=== PATIENT | male | born 1990 | race Caucasian/White ===

== ENCOUNTER 2016-12-21 07:57 | Emergency (ER) | payer OTHER, MEDICAID ==
[~2016-12-21] VITALS: Ht 177.8 cm; Wt 120.0 kg
[~2016-12-21 07:57] MED LIST: BACT800T5 PO; CEPH500C3 PO
[2016-12-21 07:59] VITALS: BP 136/99; PULSE 76; RESP 20; TEMP 97.5; O2SAT 98
[2016-12-21] MEDS ORDERED: PRED50 PO (08:44)
[2016-12-21] MEDS ORDERED: CYCL1TAB29 PO (08:44)
[2016-12-21] MEDS ORDERED: IBUP800T23 PO (08:44)
[2016-12-21] MEDS ORDERED: KETOROLAC TROMETHAMINE 60 MG/2 ML (IM) VIAL IM ONE (08:45)
[2016-12-21] MEDS ORDERED: ORPHENADRINE INJ 60 MG/2 ML AMP IM ONE (08:45)
[2016-12-21] MEDS ORDERED: DEXAMETHASONE SOD PHOS 20 MG/5 ML VIAL IM ONE (08:45)
--- NOTE | 2016-12-21 08:45 | PD ---
HPI Chief Complaint: Back/ Neck Pain or Injury Time Seen by Provider: 08:40 Travel History International Travel<30 days: No Contact w/Intl Traveler<30days: No Traveled to known affect area: No History of Present Illness HPI Patient is a 26-year-old male presenting to the emergency department for evaluation of left lower back pain. Patient states the pain started yesterday when he lifted his 34 pound child onto the bed to change his diaper. Patient states at that time he bent over and his back tightened up. He states that when that occurred his legs felt weak and he has pain radiating down the back of his leg. Patient is ambulatory in the emergency department. He reports his pain is a 10 out of 10 and describes it as shooting and tight. He denies any bladder or bowel incontinence, no saddle paresthesia, no weakness in his extremities. He has no other complaints at this time. He denies any significant past medical history other than to herniated disks in his back. PFSH Past Medical History Diminished Hearing: No Musculoskeletal: Yes (chronic back pain) Immunizations Current: Yes Social History Alcohol Use: Yes (SOCIALLY) Tobacco Use: Yes (1 PPD) Substance Use: No Allergies-Medications (Allergen,Severity, Reaction): Coded Allergies: No Known Allergies (Verified , 01/27/16) Reported Meds & Prescriptions Reported Meds & Active Scripts Active Keflex (Cephalexin Monohydrate) 500 Mg Cap 500 Mg PO BID Bactrim DS (Sulfamethoxazole-Trimethoprim DS) 1 Tab Tab 1 Tab PO BID 10 Days Review of Systems Except as stated in HPI: all other systems reviewed are Neg Musculoskeletal: Positive: Myalgias, Cramping, Pain Physical Exam Narrative GENERAL: Obese, Well-nourished, well-developed patient. Appears uncomfortable. SKIN: Focused skin assessment warm/dry. HEAD: Normocephalic. EYES: No scleral icterus. No injection or drainage. NECK: Supple, trachea midline. No JVD or lymphadenopathy. CARDIOVASCULAR: Regular rate and rhythm without murmurs, gallops, or rubs. RESPIRATORY: Breath sounds equal bilaterally. No accessory muscle use. GASTROINTESTINAL: Abdomen soft, non-tender, nondistended. MUSCULOSKELETAL: No cyanosis, or edema. Tender to palpation left paraspinal musculature in the lumbar region. No spinal tenderness noted. No weakness in extremities. 5/5 muscle strength in bilateral lower extremities. BACK: Nontender without obvious deformity. No CVA tenderness. Data Data Last Documented VS Vital Signs Date Time Temp Pulse Resp B/P Pulse Ox O2 Delivery O2 Flow Rate FiO2 12/21/16 07:59 97.5 76 20 136/99 98 Room Air Orders Dexamethasone Inj (Decadron Inj) (12/21/16 08:45) Ketorolac Inj (Toradol Inj) (12/21/16 08:45) Orphenadrine Inj (Norflex Inj) (12/21/16 08:45) [facility] Medical Decision Making Medical Screen Exam Complete: Yes Emergency Medical Condition: Yes Interpretation(s) Vital Signs Date Time Temp Pulse Resp B/P Pulse Ox O2 Delivery O2 Flow Rate FiO2 12/21/16 07:59 97.5 76 20 136/99 98 Room Air Differential Diagnosis Sciatica versus sprain versus strain versus spasm versus discogenic pain versus other Narrative Course Patient is a 26-year-old male presenting to emergency for evaluation of lower back pain that started yesterday when he lifted his 34 pound child onto the bed. Patient is a history of back pain, he has been taking acetaminophen with no relief of symptoms. Patient is neurologically and neurovascularly intact. He will be given Toradol, Norflex, dexamethasone the emergency department. Patient will be given prescriptions for anti-inflammatory medication and a muscle relaxer. He is encouraged to apply warm moist heat to the affected area , continue range of motion exercises, avoid exacerbating activities and avoiding bed rest. He was encouraged follow-up with a primary doctor return to emergency department for any new or worsening symptoms. Patient verbalized understanding of these instructions. Patient stable for discharge. Diagnosis Primary Impression: Strain of lumbar paraspinal muscle Qualified Code: S39.012A - Strain of lumbar paraspinal muscle, initial encounter Additional Impression: Spasm of lumbar paraspinous muscle Referrals: Primary Care Physician Patient Instructions: General Instructions, Muscle Spasm (ED), Muscle Strain ( ED) Additional Instructions: Follow-up with your primary doctor Take medications as directed Apply warm heat to the affected area, continue range of motion exercises, avoid bed rest, avoid exacerbating activities Return to emergency department for any new or worsening symptoms Med/Other Pt SpecificInfo: Prescription(s) given Scripts Ibuprofen 800 Mg Nsg070 Mg PO Q8H PRN (PAIN SCALE 1 TO 10) 10 Days Ref 0 Prov:Elba Kulkarni 12/21/16 Prednisone 50 Mg Tab50 Mg PO DAILY 5 Days Ref 0 Prov:Elba Kulkarni 12/21/16 Cyclobenzaprine (Flexeril)10 Mg Tab10 Mg PO TID PRN (MUSCLE SPASM) 10 Days Ref 0 Prov:Elba Kulkarni 12/21/16 Disposition: 01 DISCHARGE HOME Condition: Stable Elba Kulkarni Dec 21, 2016 08:44
== END 2016-12-21 09:54 | disposition home or self-care (01) ==
LOC: NEPK 07:57
DX: S39.012A Strain of muscle, fascia and tendon of lower back, initial encounter (principal); X50.0XXA Overexertion from strenuous movement or load, initial encounter; Y93.F2 Activity, caregiving, lifting
CPT/HCPCS: 96372; 99283; J1100; J1885; J2360

== ENCOUNTER 2017-08-06 18:00 | Emergency (ER) | payer MEDICAID ==
[~2017-08-06] VITALS: Ht 177.8 cm; Wt 131.0 kg
[~2017-08-06 18:00] MED LIST changes: +CYCL10TA PO; +IBUP1TAB7 PO; +PRED50 PO
[2017-08-06 18:07] VITALS: BP 166/77; PULSE 93; RESP 18; TEMP 98.9; O2SAT 98
[2017-08-06] MEDS ORDERED: MEDR4PAK PO (19:51)
[2017-08-06] MEDS ORDERED: VENTAER INH (19:51)
[2017-08-06] MEDS ORDERED: OSEL75 PO (19:53)
[2017-08-06] MEDS ORDERED: ZOFR4TAB3 SL (19:53)
--- NOTE | 2017-08-06 19:54 | PD ---
HPI Chief Complaint: Cold / Flu Symptoms Time Seen by Provider: 19:42 Travel History International Travel<30 days: No Contact w/Intl Traveler<30days: No Traveled to known affect area: No History of Present Illness HPI ONSET OF COUGH, RUNNY NOSE ABOUT 2 DAYS AGO, NOW STARTED TO HAVE N/V/D WELL STARTING TODAY..... NO ALLEVIATING/AGGRAVATING FACTORS. DENIES FEVER/CP/MICHELE/ ABDPAIN/ AT THIS TIME ALL:NKDA PMHX: DENIES PSHX: DENIES PFSH Past Medical History Diminished Hearing: No Musculoskeletal: Yes (chronic back pain herniated disc) Immunizations Current: Yes Tetanus Vaccination: < 5 Years Influenza Vaccination: No Social History Alcohol Use: Yes (SOCIALLY) Tobacco Use: Yes (1 PPD) Substance Use: No Allergies-Medications (Allergen,Severity, Reaction): Coded Allergies: No Known Allergies (Verified Adverse Reaction, Unknown, 08/06/17) Reported Meds & Prescriptions Reported Meds & Active Scripts Active No Active Prescriptions or Reported Medications Review of Systems Except as stated in HPI: all other systems reviewed are Neg General / Constitutional: No: Fever Eyes: No: Visual changes HENT: No: Headaches Cardiovascular: No: Chest Pain or Discomfort Respiratory: Positive: Cough Gastrointestinal: Positive: Nausea, Vomiting, Diarrhea Genitourinary: No: Dysuria Musculoskeletal: No: Pain Skin: No Rash Neurologic: No: Weakness Psychiatric: No: Depression Endocrine: No: Polydipsia Hematologic/Lymphatic: No: Easy Bruising Physical Exam Narrative GENERAL: SKIN: Warm and dry. HEAD: Atraumatic. Normocephalic. EYES: Pupils equal and round. No scleral icterus. No injection or drainage. ENT: No nasal bleeding or discharge. Mucous membranes pink and moist. NECK: Trachea midline. No JVD. CARDIOVASCULAR: Regular rate and rhythm. RESPIRATORY: No accessory muscle use. Clear to auscultation. Breath sounds equal bilaterally. MILD SCATTERED WHEEZING WITH NL TIDAL VOLUME GASTROINTESTINAL: Abdomen soft, non-tender, nondistended. MUSCULOSKELETAL: Extremities without clubbing, cyanosis, or edema. No obvious deformities. NEUROLOGICAL: Awake and alert. No obvious cranial nerve deficits. Motor grossly within normal limits. Five out of 5 muscle strength in the arms and legs. Normal speech. PSYCHIATRIC: Appropriate mood and affect; insight and judgment normal. Data Data Last Documented VS Vital Signs Date Time Temp Pulse Resp B/P (MAP) Pulse Ox O2 Delivery O2 Flow Rate FiO2 08/06/17 19:10 20 98 Room Air 08/06/17 18:07 98.9 93 166/77 (106) Orders Orders Ondansetron Odt (Zofran Odt) (08/06/17 20:00) Hydrocodone-Homatropine Liq (Hycodan Liq (08/06/17 20:00) Chest, Pa & Lat (08/06/17 19:46) MDM Medical Decision Making Medical Screen Exam Complete: Yes Emergency Medical Condition: Yes Medical Record Reviewed: Yes Differential Diagnosis FLU V PNA V PTX V VIRAL SYNDROME V VIRAL GASTROENTERITIS Diagnosis Primary Impression: FLU Patient Instructions: General Instructions, Influenza (DC) Scripts Oseltamivir (Tamiflu) 75 Mg Cap 75 MG PO BID for Mgmt Viral Infection for 5 Days, #10 CAP 0 Refills Prov: Satish Marroquin MD 08/06/17 Ondansetron Odt (Zofran Odt) 4 Mg Tab 4 MG SL Q6HR Y for Nausea/Vomiting, #20 TAB 0 Refills Prov: Satish Marroquin MD 08/06/17 Methylprednisolone Dosepak (Medrol Dosepak) 4 Mg Dspk 4 MG PO DIRECTED, #1 DSPK 0 Refills Per Pharmacist direction Prov: Satish Marroquin MD 08/06/17 Albuterol 18 GM Inh (Ventolin Hfa 18 GM Inh) 90 Mcg/Act Aer 2 PUFF INH Q4-6H Y for SHORTNESS OF BREATH, #1 INHALER 0 Refills Prov: Satish Marroquin MD 08/06/17 Disposition: 01 DISCHARGE HOME Condition: Stable Satish Marroquin MD Aug 06, 2017 19:54
[2017-08-06] MEDS ORDERED: HYDROcodone 5 MG/HOMATROPINE 1.5 MG SYRUP 5 ML CUP PO ONE (20:00)
[2017-08-06] MEDS ORDERED: ONDANSETRON ODT 4 MG TAB PO ONE (20:00)
--- NOTE | 2017-08-06 20:48 | RADRPT ---
EXAM DATE/TIME: 08/06/2017 20:15 [facility] COMPARISON: No previous studies available for comparison. INDICATIONS : Fever, cough. MEDICAL HISTORY : None. SURGICAL HISTORY : None. ENCOUNTER: Initial ACUITY: 4 - 6 days PAIN SCORE: 0/10 LOCATION: Bilateral chest FINDINGS: PA and lateral views of the chest demonstrate the lungs to be symmetrically aerated without evidence of mass, infiltrate or effusion. The cardiomediastinal contours are unremarkable. Osseous structure s are intact. CONCLUSION: No acute disease. Jamarcus Larios MD on August 06, 2017 at 20:44 Board Certified Radiologist. This report was verified electronically.
== END 2017-08-06 21:00 | disposition home or self-care (01) ==
LOC: PHED 18:00 → PHEFT 21:00
DX: J11.1 Influenza due to unidentified influenza virus with other respiratory manifestations (principal); F17.200 Nicotine dependence, unspecified, uncomplicated
CPT/HCPCS: 71020; 99284